=== PATIENT | male | born 1955 | race Caucasian/White ===

== ENCOUNTER 2016-05-19 09:24 | Emergency (ER) | payer MEDICARE, OTHER ==
[2016-05-19 09:34] VITALS: TEMP 99; BMI 29.8
--- NOTE | 2016-05-19 09:48 | EDPRACDOC ---
- General Information Chief Complaint: Dyspnea/Resp distress Stated Complaint: SHOB/UPPER BACK PAIN Time Seen by Provider: 05/19/16 09:40 Information Source: Patient Mode Of Arrival: [facility]sp Home Medications: Home Medications Albuterol Sulfate [Proair Hfa] 2 puff INH Q4H PRN 05/19/16 Albuterol Sulfate [Proventil, Ventolin] 2.5 mg NEB Q4H PRN 05/19/16 Apixaban [Eliquis] 5 mg PO BID 05/19/16 Bacitracin/Polymyxin B Sulfate [Bacitracin-Polymyxin Ointment] 1 applic TOP BID 05/19/16 Cholecalciferol [Vitamin D] 1,000 units PO DAILY 05/19/16 Cyproheptadine HCl 4 mg PO TID 05/19/16 Flecainide [Tambocor] 100 mg PO BID 05/19/16 Folic Acid 1 mg PO DAILY 05/19/16 Gabapentin 1,200 mg PO Q8H 05/19/16 Glipizide [Glipizide Xl] 10 mg PO DAILY 05/19/16 Hydralazine HCl 50 mg PO TID 05/19/16 Isosorbide Dinitrate 30 mg PO TID 05/19/16 Levofloxacin [Levaquin] 500 mg PO DAILY #7 tab 05/19/16 Mineral Oil/Petrolatum,White [Hydrocerin Cream] 1 applic TOP BID 05/19/16 Mometasone/Formoterol [Dulera 200 Mcg/5 Mcg Inhaler] 2 puff INH BID 05/19/16 Multivitamin [One Daily] 1 tab PO DAILY 05/19/16 Polyethylene Glycol 3350 [Miralax] 17 gm PO .3XWEEKLY AT HS 05/19/16 Prednisone [Deltasone, Orasone] 40 mg PO DAILY 5 Days 05/19/16 Promethazine Dextromethorphan [Phenergan DM] 5 ml PO Q6 PRN #120 ml 05/19/16 Tamsulosin HCl [Flomax] 0.4 mg PO DAILY 05/19/16 Tiotropium Bronson [Spiriva] 2 puff INH DAILY 05/19/16 Tramadol HCl [Tramadol HCl ER] 300 mg PO DAILY 05/19/16 Triamcinolone Acetonide 1 applic TOP BID 05/19/16 Triamcinolone Acetonide [Nasal Allergy] 2 spray RAJESH DAILY 05/19/16 Verapamil HCl [Verapamil ER] 180 mg PO DAILY 05/19/16 Allergies/Adverse Reactions: Allergies Allergy/AdvReac Type Severity Reaction Status Date / Time No Known Allergies Allergy Verified 05/19/16 09:31 - History of Present Illness Onset: THIS MORNING HPI: PT COMPLAINS OF NON-PROD COUGH, SOBR, FEVER, CHILLS THAT BEGAN EARLY THIS MORNING, NOTED TO HAVE FEVER AT LONGTERM CAMP, REFERRED TO THE ED FOR FURTHER EVALUATION. PT ALSO COMPLAINS OF PAIN IN LEFT SHOULDER, STATES PAIN IS ACHING, WORSE WITH MOVING SHOULDER. Shortness of Breath: Severe Relevant History: Reports: COPD, Heart Failure (CHF) Cough: Reports: Non-productive Rhinorrhea: Denies: Clear, Bloody, Brown, Green, Purulent, None, O Ear Symptoms: Reports: None SOB Worsens with: Reports: Exertion SOB Improves with: Reports: Nothing Recently treated infections:: Denies: Otitis media, Pneumonia, URI Associated Signs and symptoms: Reports: Cough, Fever, Nasal Symptoms, Myalgia. Denies: Earache, Headache, Sore Throat, Nausea, Vomiting, Diarrhea, Rash, Pain with head movement, AMS ED Past Medical History - History Reviewed Yes Nurses notes reviewed and agree except as marked - Patient Medical History Cardiac History: Reports: Coronary Artery Disease, Atrial Fibrillation, Hypertension, Congestive Heart Failure, Heart Attack Respiratory History: Reports: Asthma, COPD Systemic History: Reports: Diabetes - Social Medical History Smoking Status: Never smoker ETOH: None Substance Abuse: None Lives In: Other (LONGTERM) EDM Review of Systems - Review of Systems Constitutional: Chills, Fever Eyes: negative: Blurred Vision, Double Vision Ears: negative: Drainage Throat: negative: Pain Nose: Congestion. negative: Discharge Respiratory: Cough, Shortness of Breath, Wheezing Cardiovascular: negative: Chest Pain, Palpitations Gastrointestinal: negative: Diarrhea, Nausea, Pain, Vomiting Genitourinary: negative: Dysuria, Frequency Neurological: negative: Dizziness, Headache, Numbness, Weakness Musculoskeletal: Shoulder Integumentary: No Symptoms Reported - Physical Exam Constitutional: Alert (Awake), No apparent distress Oriented to: Time, Person, Place Last recorded Vital Signs: Last Vital Signs Temp 99.0 F 05/19/16 09:31 Pulse 108 05/19/16 09:31 Resp 20 05/19/16 09:31 BP 180/75 H 05/19/16 09:31 Pulse Ox 92 05/19/16 09:31 Oxygen Pulse Oxygen Saturation 92 O2 Device Nasal Cannula Oxygen Flow Rate 2 Fraction of Inspired Oxygen ( FIO2) - HEENT Head: Normal ( normocephalic) Eye Exam: Normal (PERRL, EOMI, Sclera white) Oropharynx: Normal (Pharynx:Moist without exudate,Gums-no swelling) Tympanic Membrane: Normal ENT EAC: Normal TMJ: Normal Nose: No Symptoms Reported (septum midline) Neck: Normal (FROM, trachea at midline) - Respiratory/Cardiovascular Respiratory: Diminished, Wheezes Cardiovascular: Normal (RRR without murmur, gallop or rub) - GI Auscultation: Normal (NABS) Palpation: Normal (Soft,No rebound or guarding, non distended) Tenderness: Non tender Mendiola's Sign: Negative - Musculoskeletal Back: Normal (Non-Tender) Extremities: Normal (Normal tone, Pulses 2+ No cyanosis or edema, FROM) - Integumentary Skin: Normal, Warm, Dry Lymphatics: Normal (no adenopathy) - Neurologic Memory Impaired: Normal Motor Function: Normal (Normal tone, Pulses 2+ No cyanosis or edema, FROM) Cranial Nerve: Normal (CN II-X11 intact sensation, strength 5/5) Cerebellar: Normal Mood Description: Normal Perception: Normal ED SOB MDM - Differential Diagnosis Differential Diagnosis: Heart Failure, Pnuemonia, Respiratory Failure - Re-evaluation Re-evaluation 1 Re-evaluation Time: 11:21 (IMPROVED) - Results Result Diagrams: 05/19/16 09:50 05/19/16 09:50 Results: 05/19/16 12:09 Laboratory Results - last 24 hr 05/19/16 05/19/16 05/19/16 09:50 09:50 09:50 WBC 7.6 RBC 4.33 L Hgb 11.3 L Hct 34.4 L MCV 79 L MCH 26.2 L MCHC 33.0 RDW 16.4 H Plt Count 242 MPV 8.3 Neut % (Auto) 65.9 Lymph % (Auto) 11.3 L [place] % (Auto) 18.1 H Eos % (Auto) 2.8 Baso % (Auto) 1.9 Absolute Neuts (auto) 4.94 Absolute Lymphs (auto) 0.84 PT 11.9 H INR 1.2 APTT 30.5 Puncture Site pH pCO2 pO2 HCO3 Total CO2 Base Excess FiO2 % Specimen Drawn By Sodium 139 Potassium 4.3 Chloride 102 Carbon Dioxide 26 Anion Gap 15 BUN 14 Creatinine 0.70 Estimated GFR (MDRD) > 60 Glucose 87 Calculated Osmolality 268 L Calcium 9.1 Corrected Calcium 9.2 Total Bilirubin 0.4 AST 17 ALT 28 Alkaline Phosphatase 84 Troponin I < 0.01 Nyg-V-Kagolrdzxac Pept 56 Total Protein 6.7 Albumin 3.9 Lipase 27 05/19/16 09:58 WBC RBC Hgb Hct MCV MCH MCHC RDW Plt Count MPV Neut % (Auto) Lymph % (Auto) [place] % (Auto) Eos % (Auto) Baso % (Auto) Absolute Neuts (auto) Absolute Lymphs (auto) PT INR APTT Puncture Site Right radial pH 7.430 pCO2 41.0 pO2 78.0 L HCO3 27.2 H Total CO2 28.5 H Base Excess 2.6 H FiO2 % 2 lpm nc Specimen Drawn By Roude Sodium Potassium Chloride Carbon Dioxide Anion Gap BUN Creatinine Estimated GFR (MDRD) Glucose Calculated Osmolality Calcium Corrected Calcium Total Bilirubin AST ALT Alkaline Phosphatase Troponin I Vbr-R-Easnrmzphjd Pept Total Protein Albumin Lipase - EKG EKG #1 EKG Time: 10:03 -: Yes EKG interpreted by me Rate: bpm: 94 [place]ansom: Normal Rhythm: NSR, PVCs Block: None Hypertrophy: None ST: Nonsp Comments: NO OLD EKG FOR COMPARISON Decision Time to Discharge: 12:09 - Departure Disposition: Home Condition: Stable Final Diagnosis: Left lower lobe pneumonia Qualifiers: Pneumonia type: due to unspecified organism Qualified Code(s): J18.1 - Lobar pneumonia, unspecified organism Instructions: Community Acquired Pneumonia (ED) Education/Counseling Given To: Patient Education/Counseling Given Regarding: Diagnosis, Treatment, Prognosis, Follow Up Referrals: [Primary Care Provider] - One Week Prescriptions: Levofloxacin [Levaquin] 500 mg PO DAILY #7 tab Prednisone [Deltasone, Orasone] 40 mg PO DAILY 5 Days Promethazine Dextromethorphan [Phenergan DM] 5 ml PO Q6 PRN #120 ml PRN Reason: Cough Additional Instructions: Rest, drink plenty of fluids, use Tylenol every 4 hours and Motrin every 6 hours as needed for pain or fever, return to the ED for any worsening symptoms or concerns. YOUR RADIOGRAPHIC STUDIES (X-Ray)SHOWED AN ABNORMALITY (A POSSIBLE NODULE IN YOUR LEFT LUNG ). IT IS TOO EARLY OR TOO SMALL TO DETERMINE EXACTLY WHAT IT IS. YOU WILL NEED TO FOLLOW-UP WITH YOUR PRIMARY CARE DOCTOR IN THE NEXT COUPLE OF WEEKS TO HAVE THIS CHEEKED (TO MAKE SURE IT IS NOT EARLY CANCER). YOU WILL NEED AN OUTPATIENT CT SCAN OF YOUR CHEST FOR FURTHER EVALUATION
[2016-05-19] MEDS ORDERED: SODIUM CHLORIDE 0.9% 10 ML FLUSH FLUSH PRN (09:49)
[2016-05-19] MEDS ORDERED: METHYLPREDNISOLONE 125 MG/2 ML VIAL IV ONE (09:50)
[2016-05-19] MEDS ORDERED: Albuterol/Ipratropium Neb 3 ML NEB NEB ONE (09:50)
[2016-05-19 10:02] LABS: ALLEN'S TEST PASS; BEb 2.6 (+/- 2); TCO2 28.5 MMOL/L (23-27)
[2016-05-19 10:03] LABS: ABG Draw Site Right Radial
[2016-05-19 10:45] LABS: AUTOMATED BASOPHIL 1.9 % (0-2); AUTOMATED EOSINOPHIL 2.8 % (0-5); AUTOMATED LYMPH 11.3 % (17-44); AUTOMATED MONOCYTE 18.1 % (3-10); AUTOMATED NEUTROPHIL 65.9 % (45-76); MPV 8.3 fL (7.4-10.4)
[2016-05-19 11:00] LABS: PARTIAL THROMB. TIME 30.5 SEC (22-35); PT-INR 1.2
[2016-05-19 11:05] LABS: CALC CORRECTED 9.2 MG/DL (8.4-10.2); CALCIUM 9.1 MG/DL (8.4-10.2); CHLORIDE 102 mEq/L (98-107); GLUCOSE 87 MG/DL (70-99); SODIUM LEVEL 139 mEq/L (137-146); TOTAL PROTEIN 6.7 G/DL (6.3-8.2)
[2016-05-19 11:10] LABS: BLOOD UREA NITROGEN 14 MG/DL (9-20); CALCULATED OSMOLALITY 268 MOs/Kg (270-290)
--- NOTE | 2016-05-19 12:04 | DIRPT ---
CLINICAL DATA: Shortness of breath. Fever. Chills. EXAM: CHEST 2 VIEW COMPARISON: Report from 05/07/1999 FINDINGS: Large lung volumes with interstitial sit accentuation, query emphysema. Gynecomastia. Biapical pleural parenchymal scarring. Vague density along the lingula with indistinct heart border. This projects immediately over the left breast shadow and some of the appearance may be due to the breast shadow, and some possibly due to epicardial adipose tissue. However, I cannot confidently exclude a nodule or airspace opacity in this vicinity based on the frontal projection. Thoracic spondylosis with Schmorl's nodes. Slight wedging in the mid thorax. Borderline enlargement of the cardiopericardial silhouette. IMPRESSION: 1. Vague density in the lingula on the frontal projection. Although possibly from epicardial fat pad and breast shadow, I cannot exclude a pulmonary nodule or lingular infiltrate. CT chest recommended for further workup. 2. Bilateral mild interstitial accentuation with large lung volumes, query emphysema. 3. Biapical pleural parenchymal scarring. 4. Thoracic spondylosis with some mild mid thoracic chronic appearing wedging. Electronically Signed By: Chinedu Osullivan M.D. On: 05/19/2016 12:01
[2016-05-19] MEDS ORDERED: LEVOFLOXACIN 500 MG TAB PO ONE (12:12)
[2016-05-19 12:29] VITALS: BP 133/63; PULSE 90
== END 2016-05-19 12:27 | disposition home or self-care (01) ==
LOC: ED 09:24 → EEVIPCON 09:24 → ED 12:27
DX: J18.9 Pneumonia, unspecified organism (principal); I25.10 Atherosclerotic heart disease of native coronary artery without angina pectoris; I48.91 Unspecified atrial fibrillation; I10 Essential (primary) hypertension; I50.9 Heart failure, unspecified; E11.9 Type 2 diabetes mellitus without complications; J44.9 Chronic obstructive pulmonary disease, unspecified; J45.909 Unspecified asthma, uncomplicated; Z79.899 Other long term (current) drug therapy
CPT/HCPCS: 36415; 36600; 71020; 80053; 82803; 83690; 83880; 84484; 85025; 85610; 85730; 87040; 93005; 94640; 96374; 99284; J2930; J3490; J7620